=== PATIENT | female | born 1990 | race Caucasian/White ===

== ENCOUNTER → 2024-03-21 12:25 | Outpatient (REF) | payer OTHER, SELFPAY | LOC: HWRAD 12:25 | PROVIDERS: ATTENDING PHYSICIAN Student in an Organized Health Care Education/Training Program | DX: M17.10 Unilateral primary osteoarthritis, unspecified knee (principal); Q68.2 Congenital deformity of knee; G89.29 Other chronic pain; M25.561 Pain in right knee; M25.562 Pain in left knee | CPT/HCPCS: 73564 ==

== ENCOUNTER → 2024-05-07 10:14 | Outpatient (REF) | payer OTHER, SELFPAY | LOC: MRI 3T 10:14 | PROVIDERS: ATTENDING PHYSICIAN Student in an Organized Health Care Education/Training Program | DX: M17.10 Unilateral primary osteoarthritis, unspecified knee (principal); Q68.2 Congenital deformity of knee; G89.29 Other chronic pain; M25.561 Pain in right knee; M25.562 Pain in left knee | CPT/HCPCS: 73721 ==

== ENCOUNTER → 2024-11-25 11:47 | Outpatient (REF) | payer OTHER, SELFPAY | LOC: HWRAD 11:47 | PROVIDERS: ATTENDING PHYSICIAN Physician Assistant; FAMILY PHYSICIAN Student in an Organized Health Care Education/Training Program | DX: R10.13 Epigastric pain (principal) | CPT/HCPCS: 76700 ==